=== PATIENT | female | born 1985 | race American Indian/Alaskan Native ===

== ENCOUNTER 2021-08-11 06:51 | Day surgery (SDC) | payer MEDICAID ==
[2021-08-11] MEDS ORDERED: LACTATED RINGERS 1,000 ML ONE ×2 (07:37→14:52)
[2021-08-11] MEDS ORDERED: HYDROmorphone 1 MG/1 ML INJ IV PRN ×2 (08:49)
[2021-08-11] MEDS ORDERED: ONDANSETRON 4 MG/2 ML INJ IV PRN (08:49)
--- NOTE | 2021-08-11 08:51 | Anesthesia Day of Surgery ---
Anesthesia Day of Surgery - Day of Surgery Patient Examined: Yes Patient H&P Reviewed: Yes Patient is NPO: Yes
--- NOTE | 2021-08-11 08:52 | Anesthesia Consultation ---
Anesthesia Consult and Med Hx Date of service: 08/11/21 - Airway Anesthetic Teeth Evaluation: Chipped ROM Head & Neck: Adequate Mental/Hyoid Distance: Adequate Mallampati Class: Class II Intubation Access Assessment: Good - Pre-Operative Health Status ASA Pre-Surgery Classification: ASA1 Proposed Anesthetic Plan: General - Pulmonary Hx Smoking: No Hx Sleep Apnea: No - Cardiovascular System Hx Hypertension: No Hx Heart Attack/AMI: No - Central Nervous System Hx Seizures: No Hx Back Pain: No Hx Psychiatric Problems: No - Endocrine Hx End Stage Renal Disease: No Hx Liver Disease: No - Hematic Hx Anemia: No Hx Sickle Cell Disease: No - Other Systems Hx Alcohol Use: No Hx Substance Use: No Hx Cancer: No Hx Obesity: Yes
[2021-08-11] MEDS ORDERED: LACTATED RINGERS 1,000 ML IV SCH (09:00)
[2021-08-11] MEDS ORDERED: GABAPENTIN 500 MG/10 ML ORAL LIQD PO NR (09:00)
[2021-08-11] MEDS ORDERED: MIDAZOLAM 2 MG/2 ML INJ IV NR (09:00)
[2021-08-11] MEDS ORDERED: ACETAMINOPHEN 325 MG/10.15 ML ORAL LIQD UNIT DOSE PO NR (09:00)
[2021-08-11] MEDS ORDERED: KETOROLAC 30 MG/1 ML INJ IV NR (10:00)
[2021-08-11] MEDS ORDERED: BUPIVACAINE/PF (0.5%) 5 MG/1 ML 30 ML VIAL INFILTRATI ONE ×2 (12:53→15:13)
[2021-08-11] MEDS ORDERED: fentaNYL 100 MCG/2 ML INJ ONE (13:07)
[2021-08-11] MEDS ORDERED: propofoL 200 MG/20 ML VIAL IV ONE (13:07)
[2021-08-11] MEDS ORDERED: MIDAZOLAM 2 MG/2 ML INJ ONE (13:07)
[2021-08-11] MEDS ORDERED: LIDOCAINE MPF (2%) 20 MG/1 ML VIAL 5 ML ONE (13:07)
[2021-08-11] MEDS ORDERED: ROCURONIUM 50 MG/5 ML INJ IV ONE (13:16)
[2021-08-11] MEDS ORDERED: KETAMINE/STERILE WATER 50 MG/ML SYRINGE ONE (13:17)
[2021-08-11] MEDS ORDERED: ONDANSETRON 4 MG/2 ML INJ ONE (13:18)
[2021-08-11] MEDS ORDERED: ceFAZolin/Water 2 GM/20 ML 2 GM/20 ML SYRINGE IV ONE (13:36)
[2021-08-11] MEDS ORDERED: ceFAZolin/STERILE WATER 2 GM/20 ML SYRINGE IV NR (14:00)
[2021-08-11] MEDS ORDERED: SODIUM CHLORIDE 0.9% IRR 1,500 ML BOTTLE IR ONE (15:13)
[2021-08-11] MEDS ORDERED: GLYCOPYRROLATE 0.4 MG/2 ML INJ ONE (15:28)
[2021-08-11] MEDS ORDERED: NEOSTIGMINE 10MG/10 ML INJ MDV ONE (15:28)
[2021-08-11] MEDS ORDERED: KETOROLAC 30 MG/1 ML INJ ONE (15:34)
--- NOTE | 2021-08-11 15:42 | Procedure Note ---
Date of procedure: 08/11/21 Pre-op diagnosis: Multiparous, desires permanent sterilization; H/O C/S x1 Post-op diagnosis: same Procedure: Procedure: Mini-Lap with bilateral salpingectomy After the risks, benefits and alternatives of the procedure was explained and pt signed consents, she was taken to the OR via stretcher with IV fluids in progress. Time out done and pt given general anesthesia and preop antibiotic given per protocol. Pt shaved and hamilton cath placed with scant clear urine less than 10cc and same concentrated. Pt was prepped and draped in usual sterile fashion. Incision 5cm horizontally made just along the previous c/section scar centrally and same taken using electrocautery all the way to the fascia. The fascia was incised in the midline and extended bilaterally approximately an additional 1.5cm on each end. The rectus muscles were then from the fascia superiorly and inferiorly using electrocautery. The rectus muscle in the midline and the intraabdominal cavity entered sharply. Pt was then placed in trendelenburg and redundant bowel packed away using moist lap x2, then attention turned to left adnexa where fallopian tube grasped with cadence clamp and followed out to it's fimbriated end. The avascular portion of the mesosalpinx entered and the left tube removed. Of note, this tube did not appear to directly attach to uterine fundus, there was some scaring noted. The right tube was then identified and in a similar manner the distal end of the tube removed with it's fimbriae. Of note, while the right salpingectomy was being done the right ovarian cyst ruptured clear fluid and the free ends of the ovarian capsule reapproximated with 3-0 vicryl and 4-0 monocryl with running locked and interrupted suture with excellent hemostasis. The lap sponges x2 were then removed and the anterior peritoneum closed with 3-0 vicryl suture. The fascia was then closed from left side towards the right with 0-vicryl suture in a continuous fashion using 0-vicryl suture. The subcutaneous tissue was copiously irrigated with normal saline and reapproximated with 3-0 vicryl suture and skin closed subcutaneously with 4-0 monocryl. Excellent hemostasis remained. INTAKE: 1100cc crystalloids OUTPUT: 30cc concentrated urine EBL: less than 5cc Pathology: right and left tubal segments with fimbriae attached. Findings: Normal uterine fundus, normal right and left fallopian tubes. Normal left ovary. Right ovary with large clear cyst that ruptured intraoperatively. Low urine output prior to surgery and post op and urine remained clear. Anesthesia: GETA Surgeon: DONNELL BERMUDEZ Estimated blood loss: minimal (less than 5cc) Pathology: list (right and left fallopian tubes with fimbriae) Specimen disposition: to lab Condition: stable Disposition: same day
[2021-08-11] MEDS ORDERED: KETOROLAC 30 MG/1 ML INJ IM ONE (15:44)
--- NOTE | 2021-08-11 17:46 | Post Anesthesia Evaluation ---
- Post Anesthesia Evaluation Patient Participated: Yes Airway Patent: Yes Stable Respiratory Function: Yes Nausea/Vomiting: No Temp > 96.8F: Yes Pain Manageable: Yes Adequeate Hydration: Yes Anesthesia Complications: No Block Receding Appropriately: Not Applicable Patient on Ventilator: No
[2021-08-11] MEDS ORDERED: oxyCODONE /ACETAMINOPHEN 5-325MG TAB ONE (17:54)
[2021-08-11 17:59] VITALS: BP 117/84
== END 2021-08-11 17:15 | disposition home or self-care (01) ==
LOC: OR 06:51
PROVIDERS: ATTEND Obstetrics & Gynecology
DX: Z30.2 Encounter for sterilization (principal); E66.9 Obesity, unspecified; K21.9 Gastro-esophageal reflux disease without esophagitis; Z79.899 Other long term (current) drug therapy; Z98.890 Other specified postprocedural states
CPT/HCPCS: 58661; 88302; J0690; J1170; J1815; J1885; J2250; J2405; J2704; J2710; J3010; J3490; J7120